=== PATIENT | male | born 1980 | race African-American/Black ===

== ENCOUNTER 2016-07-20 15:43 | Emergency (ER) | payer SELFPAY ==
[~2016-07-20] VITALS: Ht 180.3 cm; Wt 108.9 kg
[~2016-07-20 15:43] MED LIST: ERYT1OIN6 LEFTEYE; HYDR-971 PO
[2016-07-20 16:49] VITALS: BP 169/115
--- NOTE | 2016-07-20 17:13 | PHYS DOC ---
Past Medical History Past Medical History: Hypertension Additional Past Medical Histor: pavon's palsy; uncontrolled HTN Past Surgical History: No Surgical History Additional Information: 2-3 cigarettes daily Alcohol Use: Occasionally Drug Use: None Adult General Chief Complaint Chief Complaint: ANKLE PROBLEM HPI HPI Patient is a 36 year old male who presents with left ankle pain after injury 2 days ago while playing basketball. The patient states that he rolled his ankle while changing directions and running. He has been ambulatory, however with pain and a limp. He denies any numbness or tingling in the toes. He does not have a PCP. Review of Systems Review of Systems Constitutional: Denies fever or chills. [] Musculoskeletal: Denies back pain. Reports left ankle pain and swelling. Integument: Denies rash or skin lesions. Reports left ankle ecchymosis. Neurologic: Denies focal weakness or sensory changes. [] Allergies Allergies Allergies Coded Allergies Type Severity Reaction Last Updated Verified No Known Drug Allergies 09/25/14 No Physical Exam Physical Exam Constitutional: Well developed, well nourished, no acute distress, non-toxic appearance. [] HENT: Normocephalic, atraumatic, oropharynx moist. [] Eyes: PERRLA, EOMI, conjunctiva normal, no discharge. [] Skin: Warm, dry, no erythema, no rash. There is mild ecchymosis of the left medial ankle. Extremities: Left medial malleolus tenderness, ROM mildly decreased due to pain , mild edema. 2+ pedal pulses. Less than 2 second capillary refill in the toes. Light touch sensation intact distally. There is no tenderness of the base of the fifth metatarsal or the proximal fibula. Neurologic: Alert and oriented X 3, normal motor function, normal sensory function, no focal deficits noted. [] Psychologic: Affect normal, judgement normal, mood normal. [] Current Patient Data Vital Signs Vital Signs Date Time Temp Pulse Resp B/P Pulse Ox O2 Delivery O2 Flow Rate FiO2 07/20/16 16:49 97.7 107 16 99 Room Air 97.7 EKG EKG [] Radiology/Procedures Radiology/Procedures Three-view x-ray of the left ankle reviewed and interpreted by myself with Dr. Allen. There are no acute fractures or dislocations. Course & Med Decision Making Course & Med Decision Making Pertinent Labs and Imaging studies reviewed. (See chart for details) The patient was applied with an Justin wrap and crutches prior to discharge. He is instructed on RICE therapy. He is given contact information for orthopedics for follow-up. Return precautions were discussed. He verbalizes understanding and agrees with plan. Dragon Disclaimer Dragon Disclaimer This electronic medical record was generated, in whole or in part, using a voice recognition dictation system. Departure Departure Impression: Primary Impression: Ankle sprain Disposition: HOME, SELF-CARE Condition: STABLE Referrals: MONIKA ALVES II, MD Patient Instructions: Ankle Sprain, [id number] Additional Instructions: There were no broken bones or dislocations seen on your x-ray. Please wear the provided Justin wrap to help with swelling and provide stability in your ankle. You may use the crutches until you feel that you're able to walk on the ankle. Please follow-up with the orthopedic doctor listed below if you have any complications. Return to the emergency department if you have any new or concerning symptoms. Problem Qualifiers Primary Impression: Ankle sprain Encounter type: initial encounter Involved ligament of ankle: unspecified ligament Laterality: left Qualified Code: S93.402A - Sprain of unspecified ligament of left ankle, initial encounter TONY COOK Jul 20, 2016 17:13
--- NOTE | 2016-07-21 09:31 | RAD ---
Left ankle, 3 views, 07/20/2017: History: Twisting injury, pain and swelling No fracture or dislocation is identified. There is mild diffuse soft tissue swelling about the ankle. IMPRESSION: No acute bony abnormality is detected.
== END 2016-07-20 18:06 | disposition home or self-care (01) ==
LOC: ER 15:43
DX: S93.402A Sprain of unspecified ligament of left ankle, initial encounter (principal); I10 Essential (primary) hypertension; F17.210 Nicotine dependence, cigarettes, uncomplicated; X50.0XXA Overexertion from strenuous movement or load, initial encounter; Y93.67 Activity, basketball; Y92.310 Basketball court as the place of occurrence of the external cause; Y99.8 Other external cause status
CPT/HCPCS: 73610; 99284

== ENCOUNTER 2017-08-09 09:34 | Emergency (ER) | payer SELFPAY ==
[2017-08-10 10:21] LABS: NEGATIVE OBC STREP NEG; POSITIVE OBC STREP POS
== END 2017-08-09 12:42 | disposition home or self-care (01) ==
LOC: ER 12:42
DX: H66.93 Otitis media, unspecified, bilateral (principal); J02.9 Acute pharyngitis, unspecified; J06.9 Acute upper respiratory infection, unspecified; I10 Essential (primary) hypertension; F17.200 Nicotine dependence, unspecified, uncomplicated
CPT/HCPCS: 87070; 87880; 99283

== ENCOUNTER 2017-09-18 01:48 | Emergency (ER) | payer SELFPAY ==
[2017-09-18] MEDS: SMZ/TMP 800/160MG TABLET. PO (03:14)
[2017-09-18] MEDS: CEPHALEXIN 250 MG CAPSULE. PO (03:14)
== END 2017-09-18 03:16 | disposition home or self-care (01) ==
LOC: ER 01:48
DX: L03.313 Cellulitis of chest wall (principal); R23.4 Changes in skin texture; I10 Essential (primary) hypertension
CPT/HCPCS: 99283

== ENCOUNTER 2017-10-07 16:18 | Emergency (ER) | payer SELFPAY | END 2017-10-07 18:10 | disposition home or self-care (01) | LOC: ER 18:10 | DX: B49 Unspecified mycosis (principal); M01.X42 Direct infection of left hand in infectious and parasitic diseases classified elsewhere; M01.X41 Direct infection of right hand in infectious and parasitic diseases classified elsewhere; I10 Essential (primary) hypertension | CPT/HCPCS: 99282; 99283 ==

== ENCOUNTER 2019-03-29 06:44 | Emergency (ER) | payer SELFPAY ==
[~2019-03-29] VITALS: Ht 180.3 cm; Wt 108.9 kg
[~2019-03-29 06:44] MED LIST changes: +AMOX875T PO; +CEPH-264 PO; +CLOT15CR4 TP; +HYDR-3164 PO; -HYDR-971 PO; +IBUP-1060 PO; +LISI10TA2 PO; +SULF1TAB24 PO
[2019-03-29] MEDS ORDERED: HYDROcodone/APAP 5/325MG 1 TAB TABLET PO ONE (07:15)
[2019-03-29] MEDS ORDERED: cloNIDine HCL 0.1 MG TABLET PO ONE (07:15)
[2019-03-29 07:51] VITALS: BP 167/97
--- NOTE | 2019-03-29 07:54 | PHYS DOC ---
Past Medical History Past Medical History: Hypertension Additional Past Medical Histor: pavon's palsy; uncontrolled HTN, SHINGLES Past Surgical History: No Surgical History Alcohol Use: Occasionally Drug Use: Marijuana Adult General Chief Complaint Chief Complaint: SORE THROAT HPI HPI Patient is a 38 year old male patient with history of hypertension, bases positive, shingles who presents with complaint of sore throat. Patient complai luan of sore throat for the last 3 days as a constant pain associated with cough and congestion without fever, nausea and vomiting, sick contact. Patient states he doesn't take his blood pressure medication every day because he had only 2 or 3 pills left over. He had blood pressure of 190/100 at arrival to ER. Review of Systems Review of Systems Constitutional: Denies fever or chills [] Eyes: Denies change in visual acuity, redness, or eye pain [] HENT: Reports nasal congestion Respiratory: Reports cough and sore throat Cardiovascular: No additional information not addressed in HPI [] GI: Denies abdominal pain, nausea, vomiting, bloody stools or diarrhea [] : Denies dysuria or hematuria [] Musculoskeletal: Denies back pain or joint pain [] Integument: Denies rash or skin lesions [] Neurologic: Denies headache, focal weakness or sensory changes [] Endocrine: Denies polyuria or polydipsia [] All other systems were reviewed and found to be within normal limits, except as documented in this note. Current Medications Current Medications Current Medications Medications (Trade) Dose Ordered Sig/Alonso Start Time Stop Time Status Last Admin Dose Admin Acetaminophen/ Hydrocodone Bitart (Lortab 5/325) 1 tab 1X ONCE 03/29/19 07:15 03/29/19 07:16 DC 03/29/19 07:18 1 TAB Clonidine HCl (Catapres) 0.1 mg 1X ONCE 03/29/19 07:15 03/29/19 07:16 DC 03/29/19 07:18 0.1 MG Allergies Allergies Allergies Coded Allergies Type Severity Reaction Last Updated Verified No Known Drug Allergies 09/25/14 No Physical Exam Physical Exam Constitutional: Well developed, well nourished, mild distress, non-toxic, obese[] HENT: Normocephalic, atraumatic, bilateral external ears normal, oropharynx moist, pharyngeal erythema, no oral exudates, nose normal. [] Eyes: PERRLA, EOMI, conjunctiva normal, no discharge. [] Neck: Normal range of motion, no tenderness, supple, no stridor. [] Cardiovascular:Heart rate regular rhythm, no murmur [] Lungs & Thorax: Bilateral breath sounds clear to auscultation [] Abdomen: Bowel sounds normal, soft, no tenderness, no masses, no pulsatile masses. [] Skin: Warm, dry, no erythema, no rash. [] Back: No tenderness, no CVA tenderness. [] Extremities: No tenderness, no cyanosis, no clubbing, ROM intact, no edema. [] Neurologic: Alert and oriented X 3, normal motor function, normal sensory function, no focal deficits noted. [] Psychologic: Affect normal, judgement normal, mood normal. [] Current Patient Data Vital Signs Vital Signs Date Time Temp Pulse Resp B/P (MAP) Pulse Ox O2 Delivery O2 Flow Rate FiO2 03/29/19 07:51 98 167/97 (120) 97 03/29/19 07:18 18 Room Air 03/29/19 07:00 98.1 98.1 Lab Values Laboratory Tests Test 03/29/19 07:00 Influenza Type A Antigen Negative (NEGATIVE) Influenza Type B Antigen Negative (NEGATIVE) Group A Streptococcus Rapid Negative (NEGATIVE) EKG EKG [] Radiology/Procedures Radiology/Procedures [] Course & Med Decision Making Course & Med Decision Making Pertinent Labs reviewed. (See chart for details) Evaluation of patient in ER showed 38-year-old male patient with complaining of sore throat and cough. Patient admitted and flu test. Patient had blood pressure of 190s over 100 without his blood pressure medication that improved with clonidine to 167/97. Patient was advised to take his blood pressure medication and prescription for lisinopril was given. Dragon Disclaimer Dragon Disclaimer This electronic medical record was generated, in whole or in part, using a voice recognition dictation system. Departure Departure Impression: Primary Impression: Pharyngitis, acute Additional Impressions: Accelerated hypertension Noncompliance with medication regimen Disposition: HOME, SELF-CARE (at 0 823) Condition: IMPROVED Referrals: NO PCP (PCP) Patient Instructions: Managing Your High Blood Pressure, Viral and Bacterial Pharyngitis Additional Instructions: Drink plenty of liquids Follow-up with your primary care physician in 3-5 days Return to ER if not getting better Thank you for visiting [facility]. We appreciate you trusting us with your care. If any additional problems come up don't hesitate to return to visit us. Please follow up with your primary care provider so they can plan additional care if needed and know about the problem that you had. If symptoms worsen come back to the Emergency Department. Any concerning symptoms that start such as chest pain, shortness of air, weakness or numbness on one side of the body, running high fevers or any other concerning symptoms return to the ER. Scripts Naproxen (NAPROSYN) 500 Mg Tablet 1 TAB PO BID for pain, #20 TAB Prov: SAMI MENDOZA MD 03/29/19 Lisinopril (LISINOPRIL) 10 Mg Tablet 1 TAB PO DAILY, #30 TAB 0 Refills Prov: SAMI MENDOZA MD 03/29/19 Amoxicillin (AMOXICILLIN) 500 Mg Capsule 1 CAP PO Q8HRS for infection, #30 CAP Prov: SAMI MENDOZA MD 03/29/19 Problem Qualifiers Primary Impression: Pharyngitis, acute Pharyngitis/tonsillitis etiology: unspecified etiology Qualified Codes: J02.9 - Acute pharyngitis, unspecified SAMI MENDOZA MD Mar 29, 2019 07:54
[2019-03-29 08:12] LABS: INFLUENZA A PATIENT NEGATIVE (NEGATIVE); INFLUENZA B PATIENT NEGATIVE (NEGATIVE)
[2019-03-29] MEDS ORDERED: LISI10TA2 PO (08:25)
[2019-03-29] MEDS ORDERED: AMOX500C PO (08:25)
[2019-03-29] MEDS ORDERED: NAPR-683 PO (08:25)
== END 2019-03-29 08:32 | disposition home or self-care (01) ==
LOC: ER 06:44
DX: J02.9 Acute pharyngitis, unspecified (principal); I16.0 Hypertensive urgency; F12.90 Cannabis use, unspecified, uncomplicated; Z91.14 Patient's other noncompliance with medication regimen
CPT/HCPCS: 87070; 87804; 87880; 99284

== ENCOUNTER 2019-06-12 22:31 | Emergency (ER) | payer SELFPAY ==
[~2019-06-12 22:31] MED LIST changes: +AMOX500C PO; +NAPR-683 PO
== END 2019-06-13 01:44 | disposition left against medical advice (07) ==
LOC: ER 22:31
DX: R22.42 Localized swelling, mass and lump, left lower limb (principal); Z53.21 Procedure and treatment not carried out due to patient leaving prior to being seen by health care provider

== ENCOUNTER 2020-01-29 18:50 | Emergency (ER) | payer SELFPAY ==
[~2020-01-29] VITALS: Ht 180.3 cm; Wt 109.0 kg
[~2020-01-29 18:50] MED LIST changes: +CLOT15CR23 TP; -CLOT15CR4 TP
[2020-01-29] MEDS ORDERED: HYDROcodone/APAP 5/325MG 1 TAB TABLET PO ONE (22:00)
[2020-01-29] MEDS ORDERED: NAPROXEN 500 MG TABLET PO ONE (22:00)
[2020-01-29] MEDS ORDERED: predniSONE 20 MG TABLET PO ONE (22:00)
--- NOTE | 2020-01-29 22:26 | RAD ---
Exam: Left ankle 3 views INDICATION: Left ankle pain TECHNIQUE: Frontal, lateral and oblique views left ankle Comparisons: None FINDINGS: Soft tissue swelling surrounding the ankle. Bone mineralization is normal. No acute or healed fractures. Joint spaces are well-maintained. IMPRESSION: Soft tissue swelling surrounding the ankle without underlying osseous abnormality identified. Electronically signed by: Eugenio Mays MD (01/29/2020 10:23 PM) MONIQUE
[2020-01-29] MEDS ORDERED: GABA300C18 PO (22:46)
[2020-01-29] MEDS ORDERED: NAPR-514 PO (22:46)
--- NOTE | 2020-01-29 22:46 | PHYS DOC ---
Past Medical History Past Medical History: Hypertension Additional Past Medical Histor: pavon's palsy; uncontrolled HTN, SHINGLES Past Surgical History: No Surgical History Smoking Status: Current Every Day Smoker Alcohol Use: Occasionally Drug Use: Marijuana General Adult EDM: Chief Complaint: ANKLE PROBLEM HPI: HPI: Patient is a 39 year old male patient with history of hypertension who presents to the ED today complaining of 8 out of 10 left generalized ankle pain with swelling described as burning that has been going on for 5 days. Patient denies any injury. Patient states the pain is worse on weightbearing. Denies anything specifically relieving the pain. Review of Systems: Review of Systems: Constitutional: Denies fever or chills. [] Musculoskeletal: Reports left ankle pain Integument: Denies rash. [] Neurologic: Denies headache, focal weakness or sensory changes. [] Psychiatric: Denies depression or anxiety. [] Heart Score: Risk Factors: Risk Factors: DM, Current or recent (<one month) smoker, HTN, HLP, family history of CAD, obesity. Risk Scores: Score 0 - 3: 2.5% MACE over next 6 weeks - Discharge Home Score 4 - 6: 20.3% MACE over next 6 weeks - Admit for Clinical Observation Score 7 - 10: 72.7% MACE over next 6 weeks - Early Invasive Strategies Current Medications: Current Medications Medications (Trade) Dose Ordered Sig/Alonso Start Time Stop Time Status Last Admin Dose Admin Acetaminophen/ Hydrocodone Bitart (Lortab 5/325) 2 tab 1X ONCE 01/29/20 22:00 01/29/20 22:01 DC 01/29/20 22:07 2 TAB Naproxen (Naprosyn) 500 mg 1X ONCE 01/29/20 22:00 01/29/20 22:01 DC 01/29/20 22:07 500 MG Prednisone (Prednisone) 60 mg 1X ONCE 01/29/20 22:00 01/29/20 22:01 DC 01/29/20 22:06 60 MG Allergies: Allergies: Allergies Coded Allergies Type Severity Reaction Last Updated Verified No Known Drug Allergies 09/25/14 No Physical Exam: PE: Constitutional: Well developed, well nourished, no acute distress, non-toxic appearance. [] Skin: Warm, dry, no erythema, no rash. [] Back: No tenderness, no CVA tenderness. [] Extremities: Left ankle and foot with no obvious deformity. Diffuse tenderness on palpation of the left ankle. Mild soft tissue swelling noted diffusely on the ankle. Full range of motion to the left ankle and foot. +2 left pedal pulse. Cap refill less than 2 seconds in the toes. Neurologic: Alert and oriented X 3, normal motor function, normal sensory function, no focal deficits noted. [] Psychologic: Affect normal, judgement normal, mood normal. [] Current Patient Data: Vital Signs: Vital Signs Date Time Temp Pulse Resp B/P (MAP) Pulse Ox O2 Delivery O2 Flow Rate FiO2 01/29/20 21:18 102 18 177/136 (150) 97 Room Air 01/29/20 20:04 97.9 97.9 EKG: EKG: [] Radiology/Procedures: Radiology/Procedures: []PROCEDURE: ANKLE LEFT 3V Exam: Left ankle 3 views INDICATION: Left ankle pain TECHNIQUE: Frontal, lateral and oblique views left ankle Comparisons: None FINDINGS: Soft tissue swelling surrounding the ankle. Bone mineralization is normal. No acute or healed fractures. Joint spaces are well-maintained. IMPRESSION: Soft tissue swelling surrounding the ankle without underlying osseous abnormality identified. Electronically signed by: Eugenio Mckenzie MD (01/29/2020 10:23 PM) [facility] DICTATED and SIGNED BY: EUGENIO MCKENZIE MD DATE: 01/29/202222 Course & Med Decision Making: Course & Med Decision Making Pertinent Labs and Imaging studies reviewed. (See chart for details) This is a 39-year-old male patient presented to the ED today with left ankle pain with swelling that began 5 days ago. Left ankle x-rays interpreted by radiologist were noted for soft tissue swelling otherwise no acute findings. Justin bandage and Aircast applied to the left ankle. Ice elevation encouraged. Follow-up with orthopedic doctor in 1 week Marilyn Disclaimer: Marilyn Disclaimer: This electronic medical record was generated, in whole or in part, using a voice recognition dictation system. Departure Departure Impression: Primary Impression: Left ankle swelling Additional Impression: Left ankle pain Qualified Codes: M25.572 - Pain in left ankle and joints of left foot Disposition: 01 DC HOME SELF CARE/HOMELESS Condition: STABLE Referrals: NO PCP (PCP) RON ALVES MD follow up in 1 week Patient Instructions: Ankle Pain Additional Instructions: You were seen for ankle pain. Your ankle x-rays were noted for swelling otherwise no acute findings. Wear the Aircast provided as well as Justin bandage as tolerated. Follow-up with the orthopedic doctor provided in 1 to 2 weeks. Try to ice and elevate the extremity. Scripts Naproxen (NAPROXEN) 500 Mg Tablet 1 TAB PO BID for pain for 30 Days, #60 TAB 0 Refills Prov: OLEG PHAM APRN 01/29/20 Gabapentin (GABAPENTIN ) 300 Mg Capsule 300 MG PO TID PRN for PAIN, #21 CAP Prov: OLEG PHAM APRN 01/29/20 OLEG PHAM APRN Jan 29, 2020 22:46
[2020-01-29 23:00] VITALS: BP 160/90
== END 2020-01-29 23:09 | disposition home or self-care (01) ==
LOC: ER 18:50
DX: M25.572 Pain in left ankle and joints of left foot (principal); I10 Essential (primary) hypertension; F17.200 Nicotine dependence, unspecified, uncomplicated
CPT/HCPCS: 29515; 73610; 99284; J7512

== ENCOUNTER 2020-10-10 13:01 | Emergency (ER) | payer OTHER ==
[~2020-10-10] VITALS: Ht 180.3 cm; Wt 100.0 kg
[~2020-10-10 13:01] MED LIST changes: +AMLO-186 PO; +ASPI-630 PO; +ATOR40TA59 PO; +CARV6.2511 PO; +GABA300C18 PO; +LISI10TA16 PO; -LISI10TA2 PO; +LISI1TAB37 PO; +NAPR-514 PO; +PRED-220 PO
[2020-10-10 13:14] VITALS: BP 166/104
[2020-10-10] MEDS ORDERED: ASPIRIN CHEWABLE 81 MG TABLET. PO ONE (13:30)
--- NOTE | 2020-10-10 13:33 | PHYS DOC ---
Past Medical History Past Medical History: Hypertension Additional Past Medical Histor: pavon's palsy; uncontrolled HTN, SHINGLES, SLEEP APNEA Past Surgical History: No Surgical History Smoking Status: Current Every Day Smoker Alcohol Use: Heavy Drug Use: Marijuana General Adult EDM: Chief Complaint: CHEST PAIN HPI: HPI: Patient is a 40-year-old male presenting for chest pain. Reports onset was 1 hour prior to arrival while sitting still watching TV. Nothing known makes better or worse. Pain described as focal deep to left breast without radiation, states it feels tight and 6/10 severity on initial presentation, reports it has improved to 3/10 severity without any intervention. Timing of symptoms has been constant but as mentioned, has improved since initial onset. Denies any other's concerning signs or symptoms such as lightheadedness, fever, diaphoresis, ripping or tearing sensation in torso, cough, abdominal pain, changes in motor or sensory or neuro function. No prior history of passing out with physical activity/exertion, no family history of early cardiac disease. 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 Of note, patient was recently admitted to our hospital and subsequently discharged for pneumonia. He saw our cardiologists and is currently scheduled for stress test in outpatient setting next month, denies any prior provocative cardiac testing in the past Review of Systems: Review of Systems: Fourteen body systems of review of systems have been reviewed. See HPI for pertinent positives and negative responses, other orellana all other systems are negative, non-pertinent or non-contributory Heart Score: C/O Chest Pain: Yes HEART Score for Chest Pain: HEART Score for Chest Pain Response (Comments) Value History Moderately Suspicious 1 ECG Normal 0 Age < 45 0 Risk Factors 1 or 2 Risk Factors 1 Troponin >1-<3x Normal Limit 1 Total 3 Risk Factors: Risk Factors: DM, Current or recent (<one month) smoker, HTN, HLP, family history of CAD, obesity. Risk Scores: Score 0 - 3: 2.5% MACE over next 6 weeks - Discharge Home Score 4 - 6: 20.3% MACE over next 6 weeks - Admit for Clinical Observation Score 7 - 10: 72.7% MACE over next 6 weeks - Early Invasive Strategies Current Medications: Current Medications Medications (Trade) Dose Ordered Sig/Alonso Start Time Stop Time Status Last Admin Dose Admin Aspirin (Aspirin Chewable) 324 mg 1X ONCE 10/10/20 13:30 10/10/20 13:39 DC 10/10/20 13:30 324 MG Allergies: Allergies: Allergies Coded Allergies Type Severity Reaction Last Updated Verified No Known Drug Allergies 09/25/14 No Physical Exam: PE: Constitutional: Well developed, well nourished, no acute distress, non-toxic appearance. HENT: Normocephalic, atraumatic, bilateral external ears normal, oropharynx moist, no oral exudates, nose normal. Eyes: PERRLA, EOMI, conjunctiva normal, no discharge. Neck: Normal range of motion, no tenderness, supple, no stridor. Cardiovascular: Heart rate regular, sinus rhythm, no murmurs rubs or gallops Lungs & Thorax: Bilateral breath sounds clear to auscultation Abdomen: Bowel sounds normal, soft, no tenderness, no masses, no pulsatile masses. Nonsurgical abdomen, no peritoneal signs Skin: Warm, dry, no erythema, no rash. Back: No tenderness, no CVA tenderness. Extremities: No tenderness, no cyanosis, no clubbing, ROM intact, no edema. Neurologic: Alert and oriented X 3, grossly normal motor & sensory function, no focal deficits noted. Psychologic: Affect normal, judgement normal, mood normal. Current Patient Data: Labs: Laboratory Tests Test 10/10/20 13:50 White Blood Count 3.8 x10^3/uL Red Blood Count 4.39 x10^6/uL Hemoglobin 13.7 g/dL Hematocrit 39.7 % Mean Corpuscular Volume 91 fL Mean Corpuscular Hemoglobin 31 pg Mean Corpuscular Hemoglobin Concent 35 g/dL Red Cell Distribution Width 15.4 % Platelet Count 197 x10^3/uL Neutrophils (%) (Auto) 57 % Lymphocytes (%) (Auto) 28 % Monocytes (%) (Auto) 12 % Eosinophils (%) (Auto) 2 % Basophils (%) (Auto) 1 % Neutrophils # (Auto) 2.1 x10^3/uL Lymphocytes # (Auto) 1.0 x10^3/uL Monocytes # (Auto) 0.5 x10^3/uL Eosinophils # (Auto) 0.1 x10^3/uL Basophils # (Auto) 0.0 x10^3/uL Sodium Level 144 mmol/L Potassium Level 4.8 mmol/L Chloride Level 108 mmol/L Carbon Dioxide Level 26 mmol/L Anion Gap 10 Blood Urea Nitrogen 24 mg/dL Creatinine 1.3 mg/dL Estimated GFR (Cockcroft-Gault) 74.8 Glucose Level 88 mg/dL Calcium Level 8.6 mg/dL Troponin I Quantitative < 0.017 ng/mL Current Medications Medications (Trade) Dose Ordered Sig/Alonso Route PRN Reason Start Time Stop Time Status Last Admin Dose Admin Aspirin (Aspirin Chewable) 324 mg 1X ONCE PO 10/10/20 13:30 10/10/20 13:39 DC 10/10/20 13:30 324 MG Vital Signs: Vital Signs Date Time Temp Pulse Resp B/P (MAP) Pulse Ox O2 Delivery O2 Flow Rate FiO2 10/10/20 13:14 98.1 94 166/104 (101) 99 Room Air 98.1 EKG: EKG: EKG ordered and interpreted by myself at 1320 hrs. as sinus rhythm at 89 bpm, unremarkable intervals, left axis deviation, no acute ischemic findings, no S ELIZABETH Repeat EKG ordered and interpreted by myself at 1402 hrs. as sinus rhythm at 82 bpm, unremarkable intervals, left axis deviation, no acute ischemic findings, no change from prior EKG Radiology/Procedures: Radiology/Procedures: XR CHEST 1V History: Reason: CHEST PAIN / Spl. Instructions: / History: Comparison: June 27, 2020 Findings: No consolidation or pleural effusion. Normal heart size. No pneumothorax. Impression: 1. No acute cardiopulmonary process. Electronically signed by: Shiraz Hilario DO (10/10/2020 2:12 PM) [id number] Course & Med Decision Making: Course & Med Decision Making ABCs unremarkable. I disclosed entirety of ER findings and discussed most likely diagnosis of chest pain unspecified. Other diagnoses were discussed with patient such as pneumothorax, pneumonia, and pulmonary embolism but deemed less likely causes of patient's presentation. Plan of care discussed at length with need for close outpatient follow-up to review today's ER visit stressed. Strict return precautions were also discussed at length with good understanding by patient. Patient voiced understanding and agreement with the plan. Patient knows to come back for repeat evaluation if concerning signs or symptoms present prior to outpatient follow-up. Hemodynamically stable, ambulatory and well-appearing at time of disposition. Dragon Disclaimer: Dragon Disclaimer: This electronic medical record was generated, in whole or in part, using a voice recognition dictation system. PERC Rule for PE PERC Rule for PE Response (Comments) Value Age > 50: No 0 HR > 100: No 0 Sa02 on room air <95%: No 0 Unilateral leg swelling: No 0 Hemoptysis: No 0 Recent surgery or trauma: No 0 Prior PE or DVT: No 0 Hormone use: No 0 Total 0 Departure Departure Impression: Primary Impression: Chest pain Additional Impressions: Hypertension Leukopenia Disposition: HOME / SELF CARE / HOMELESS Condition: STABLE Referrals: KEVIN LEVI PA-C (PCP) Patient Instructions: Chest Pain (Nonspecific) Additional Instructions: You were seen for chest pain. Your workup did not show any acute abnormalities today, but does not indicate that you do not have underlying cardiovascular disease. You do need to follow up with your primary doctor and sas sql developer for further evaluation and treatment. In addition, it is recommended that you check your blood pressure more often and keep a dedicated blood pressure log for both your primary care and sas sql developer to review. You should also discuss with your primary care the cause of your low white blood cell count otherwise known as leukopenia. As discussed, many illnesses and underlying comorbid conditions can cause this and so, more outpatient work-up is advised. You should return to the ED if you develop worsening chest pain, shortness of breath, fever, abnormal sweating, leg swelling, or any other new or concerning symptoms. MAINOR NEWBY DO Oct 10, 2020 13:33
[2020-10-10 13:58] LABS: BASO % 1 % (0-3); EOS # 0.1 x10^3/uL (0.0-0.7); EOS % 2 % (0-3); HEMATOCRIT 39.7 % (39.0-53.0); HEMOGLOBIN 13.7 g/dL (13.0-17.5); LYMPH % 28 % (24-48); MEAN CORPUSCULAR HEMOGLOBIN 31 pg (25-35); MEAN CORPUSCULAR HGB CONC 35 g/dL (31-37); MEAN CORPUSCULAR VOLUME 91 fL (79-100); MONO # 0.5 x10^3/uL (0.0-1.1); MONO % 12 % (0-9); NEUT # 2.1 x10^3/uL (1.8-7.7); NEUT % 57 % (31-73); PLATELET COUNT 197 x10^3/uL (140-400); RED BLOOD COUNT 4.39 x10^6/uL (4.30-5.70); RED CELL DISTRIBUTION WIDTH 15.4 % (11.5-14.5); WHITE BLOOD COUNT 3.8 x10^3/uL (4.0-11.0)
[2020-10-10 14:09] LABS: CALCIUM 8.6 mg/dL (8.5-10.1); CREATININE 1.3 mg/dL (0.7-1.3); GFR 74.8; POTASSIUM 4.8 mmol/L (3.5-5.1)
--- NOTE | 2020-10-10 14:15 | RAD ---
XR CHEST 1V History: Reason: CHEST PAIN / Spl. Instructions: / History: Comparison: June 27, 2020 Findings: No consolidation or pleural effusion. Normal heart size. No pneumothorax. Impression: 1. No acute cardiopulmonary process. Electronically signed by: Shiraz Hilario DO (10/10/2020 2:12 PM) [id number]
== END 2020-10-10 15:03 | disposition home or self-care (01) ==
LOC: ER 13:01
DX: R07.89 Other chest pain (principal); I10 Essential (primary) hypertension; F17.200 Nicotine dependence, unspecified, uncomplicated; F10.20 Alcohol dependence, uncomplicated; Y90.9 Presence of alcohol in blood, level not specified
CPT/HCPCS: 36415; 71045; 80048; 84484; 85025; 93005; 99285-25

== ENCOUNTER 2021-01-06 07:41 | Emergency (ER) | payer OTHER ==
[~2021-01-06] VITALS: Ht 180.3 cm; Wt 105.4 kg
[~2021-01-06 07:41] MED LIST changes: +ERYT1OIN3 LEFTEYE; -ERYT1OIN6 LEFTEYE
[2021-01-06 07:59] VITALS: BP 127/77
--- NOTE | 2021-01-06 07:59 | PHYS DOC ---
Past Medical History Past Medical History: High Cholesterol, Hypertension Additional Past Medical Histor: pavon's palsy; uncontrolled HTN, SHINGLES, SLEEP APNEA Past Surgical History: No Surgical History Smoking Status: Current Every Day Smoker Alcohol Use: Heavy Drug Use: Marijuana General Adult EDM: Chief Complaint: ANKLE PROBLEM HPI: HPI: Patient is a 40 year old male who presents with right ankle pain after falling approximately 3 feet onto his right ankle last night. Was stepping behind his car and did not notice a drop off. Landed on concrete on his right foot. Thinks he may have rolled his ankle. Has had pain of the foot and ankle since. Has not been able to bear weight. Injury happened approximately 12:30 AM this morning. NKDA No history of surgery on this foot/ankle Denies head strike, LOC. No blood thinners. Denies pain elsewhere. Review of Systems: Review of Systems: Constitutional: Denies fever or chills. [] Eyes: Denies change in visual acuity. [] HENT: Denies nasal congestion or sore throat. [] Respiratory: Denies cough or shortness of breath. [] Cardiovascular: Denies chest pain or edema. [] GI: Denies abdominal pain, nausea, vomiting, bloody stools or diarrhea. [] : Denies dysuria. [] Musculoskeletal: R foot/ankle pain Integument: Denies rash. [] Neurologic: Denies headache, focal weakness or sensory changes. [] Endocrine: Denies polyuria or polydipsia. [] Lymphatic: Denies swollen glands. [] Psychiatric: Denies depression or anxiety. [] Heart Score: C/O Chest Pain: No Risk Factors: Risk Factors: DM, Current or recent (<one month) smoker, HTN, HLP, family history of CAD, obesity. Risk Scores: Score 0 - 3: 2.5% MACE over next 6 weeks - Discharge Home Score 4 - 6: 20.3% MACE over next 6 weeks - Admit for Clinical Observation Score 7 - 10: 72.7% MACE over next 6 weeks - Early Invasive Strategies Allergies: Allergies: Allergies Coded Allergies Type Severity Reaction Last Updated Verified No Known Drug Allergies 09/25/14 No Physical Exam: PE: Constitutional: Well developed, well nourished, no acute distress, non-toxic appearance. [] Eyes: PERRLA, EOMI, conjunctiva normal, no discharge. [] Neck: Normal range of motion, no tenderness, supple, no stridor. [] Cardiovascular:Heart rate regular rhythm, no murmur [] Lungs & Thorax: Bilateral breath sounds clear to auscultation [] Abdomen: Bowel sounds normal, soft, no tenderness, no masses, no pulsatile masses. [] Skin: Warm, dry, no erythema, no rash. [] Back: No tenderness, no CVA tenderness. [] Extremities: DP pulse 2+, no proximal tibial/fibular tenderness, there is distal/posterior tenderness of both malleoli on the right. Midfoot, proximal fifth metatarsal, and calcaneus are tender to the touch. Neurologic: Alert and oriented X 3, normal motor function, normal sensory function, no focal deficits noted. [] Psychologic: Affect normal, judgement normal, mood normal. [] EKG: EKG: [] Radiology/Procedures: Radiology/Procedures: [] Impression: [facility] [address] [place] [address] IMAGING REPORT Signed PATIENT: MICHAEL JACKSON ACCOUNT: [id number] : 1980 LOCATION: ER AGE: 40 SEX: M EXAM STATUS: PRE ER ORD. PHYSICIAN: JENA RODRIGUEZ MD REASON: fall, malleolar pain, midfoot pain, calcaneous pain PROCEDURE: FOOT RIGHT 3V EXAM: 3 views of the right ankle 3 views of the right foot DATE: 01/06/2021 7:58 AM INDICATION: Reason: fall, malleolar pain, midfoot pain, calcaneous pain / Spl. Instructions: / History: COMPARISON: No Prior FINDINGS: No acute fracture or dislocation. Ankle mortise is congruent. Talar dome is intact. Joint spaces are preserved without significant degenerative/proliferative change. Soft tissue swelling about the anterior and lateral aspect of the right ankle. IMPRESSION: 1. No acute fracture or dislocation. 2. Soft tissue swelling about the anterior and lateral aspect of the right ankle. Electronically signed by: Jose J Joe MD (01/06/2021 8:30 AM) [id number] DICTATED and SIGNED BY: JOSE J JOE MD DATE: 01/06/21 [id number] 0 Course & Med Decision Making: Course & Med Decision Making Pertinent Labs and Imaging studies reviewed. (See chart for details) Patient a 40-year-old male who presents with right foot/ankle pain after falling approximately 3 feet onto concrete. No evidence of other injury by history or exam. Plain films of the foot and ankle ordered. 0759 Plain films negative. Discussed with patient two options, CT of foot to evaluate for occult fracture vs close outptatient follow up with crutches, post-op shoe, and non- weightbearing. He opted for close outpatient f/u. [id number] Dragon Disclaimer: Dragon Disclaimer: This electronic medical record was generated, in whole or in part, using a voice recognition dictation system. Departure Departure Impression: Primary Impression: Right foot pain Disposition: HOME / SELF CARE / HOMELESS Condition: STABLE Referrals: KEVIN LEVI PA-C (PCP) Schedule an appointment this week Additional Instructions: Your x-ray did not show a fracture in your foot or ankle. There is a chance that you sprained something in your foot, but there is also a chance that we could have missed a small fracture. We will be important that you follow-up with your primary care doctor later this week to track your progress. Please wear the postop shoe and use crutches and do not bear weight on your foot until you follow-up with your primary care doctor. If your pain completely dissipates you may start to bear weight on your foot. For pain tylenol and ibuprofen are best used on a schedule. Please alternate between the two. -Tylenol 1000 mg every 6 hours (do not exceed 4000 mg in one day) -Ibuprofen 400 mg every 6 hours. Take with food. Do not take for more than 1 week. JENA RODRIGUEZ MD Jan 06, 2021 07:59
--- NOTE | 2021-01-06 08:32 | RAD ---
EXAM: 3 views of the right ankle 3 views of the right foot DATE: 01/06/2021 7:58 AM INDICATION: Reason: fall, malleolar pain, midfoot pain, calcaneous pain / Spl. Instructions: / Histo ry: COMPARISON: No Prior FINDINGS: No acute fracture or dislocation. Ankle mortise is congruent. Talar dome is intact. Joint spaces are preserved without significant degenerative/proliferative change. Soft tissue swelling about the anter ior and lateral aspect of the right ankle. IMPRESSION: 1. No acute fracture or dislocation. 2. Soft tissue swelling about the anterior and lateral aspect of the right ankle. Electronically signed by: Jose J Guerrero MD (01/06/2021 8:30 AM) [id number]
== END 2021-01-06 08:53 | disposition home or self-care (01) ==
LOC: ER 07:41
DX: M25.571 Pain in right ankle and joints of right foot (principal); G89.11 Acute pain due to trauma; E78.00 Pure hypercholesterolemia, unspecified; I10 Essential (primary) hypertension; F17.200 Nicotine dependence, unspecified, uncomplicated; W18.39XA Other fall on same level, initial encounter; Y93.89 Activity, other specified; Y92.89 Other specified places as the place of occurrence of the external cause; Y99.8 Other external cause status
CPT/HCPCS: 73610; 73630; 99284

== ENCOUNTER 2021-07-01 09:13 | Emergency (ER) | payer SELFPAY ==
[~2021-07-01] VITALS: Ht 180.3 cm; Wt 104.5 kg
[2021-07-01 09:31] VITALS: BP 146/92
--- NOTE | 2021-07-01 10:00 | PHYS DOC ---
Past Medical History Past Medical History: CAD, High Cholesterol, Hypertension Additional Past Medical Histor: pavon's palsy; uncontrolled HTN, SHINGLES, SLEEP APNEA Past Surgical History: No Surgical History Smoking Status: Current Every Day Smoker Alcohol Use: Heavy Drug Use: Marijuana General Adult EDM: Chief Complaint: LOWER EXTREMITY SWELLING HPI: HPI: Patient is a 41-year-old male that presents today with left foot pain. Patient states he has been having left foot pain for approximately 2 and half weeks, he says over the last couple days is increased swelling and has become too painful to walk on. Patient denies trauma, he states that he had something similar to this in his right ankle a couple of years ago and was diagnosed with gout. He states that he has a primary care physician Dr. Melendez and he has not followed up with them yet. Patient denies fever chills. Review of Systems: Review of Systems: Constitutional: Denies fever or chills. [] Eyes: Denies change in visual acuity. [] HENT: Denies nasal congestion or sore throat. [] Respiratory: Denies cough or shortness of breath. [] Cardiovascular: Denies chest pain or edema. [] GI: Denies abdominal pain, nausea, vomiting, bloody stools or diarrhea. [] : Denies dysuria. [] Musculoskeletal: Left foot pain Integument: Denies rash. [] Neurologic: Denies headache, focal weakness or sensory changes. [] Endocrine: Denies polyuria or polydipsia. [] Lymphatic: Denies swollen glands. [] Psychiatric: Denies depression or anxiety. [] Heart Score: C/O Chest Pain: No Risk Factors: Risk Factors: DM, Current or recent (<one month) smoker, HTN, HLP, family history of CAD, obesity. Risk Scores: Score 0 - 3: 2.5% MACE over next 6 weeks - Discharge Home Score 4 - 6: 20.3% MACE over next 6 weeks - Admit for Clinical Observation Score 7 - 10: 72.7% MACE over next 6 weeks - Early Invasive Strategies Allergies: Allergies: Allergies Coded Allergies Type Severity Reaction Last Updated Verified No Known Drug Allergies 09/25/14 No Physical Exam: PE: Constitutional: Well developed, well nourished, no acute distress, non-toxic appearance. [] HENT: Normocephalic, atraumatic, bilateral external ears normal, oropharynx moist, no oral exudates, nose normal. [] Eyes: PERRLA, EOMI, conjunctiva normal, no discharge. [] Neck: Normal range of motion, no tenderness, supple, no stridor. [] Cardiovascular:Heart rate regular rhythm, no murmur [] Lungs & Thorax: Bilateral breath sounds clear to auscultation [] Abdomen: Bowel sounds normal, soft, no tenderness, no masses, no pulsatile masses. [] Skin: Warm, dry, no erythema, no rash. [] Back: No tenderness, no CVA tenderness. [] Extremities: Left foot is swollen, tenderness located over the first MP joint, swelling in all the toes was noted range of motion is limited due to pain, no redness or warmth is noted dorsalis pedis pulse is 2+, sensory and vascular is intact distal to the injury cap refill is less than 2 seconds Neurologic: Alert and oriented X 3, normal motor function, normal sensory function, no focal deficits noted. [] Psychologic: Affect normal, judgement normal, mood normal. [] Current Patient Data: Labs: Laboratory Tests Test 07/01/21 10:24 White Blood Count 6.8 x10^3/uL Red Blood Count 4.03 x10^6/uL Hemoglobin 11.9 g/dL Hematocrit 35.7 % Mean Corpuscular Volume 89 fL Mean Corpuscular Hemoglobin 30 pg Mean Corpuscular Hemoglobin Concent 33 g/dL Red Cell Distribution Width 13.2 % Platelet Count 336 x10^3/uL Neutrophils (%) (Auto) 66 % Lymphocytes (%) (Auto) 21 % Monocytes (%) (Auto) 11 % Eosinophils (%) (Auto) 2 % Basophils (%) (Auto) 1 % Neutrophils # (Auto) 4.5 x10^3/uL Lymphocytes # (Auto) 1.4 x10^3/uL Monocytes # (Auto) 0.8 x10^3/uL Eosinophils # (Auto) 0.1 x10^3/uL Basophils # (Auto) 0.0 x10^3/uL Sodium Level 142 mmol/L Potassium Level 3.6 mmol/L Chloride Level 103 mmol/L Carbon Dioxide Level 25 mmol/L Anion Gap 14 Blood Urea Nitrogen 17 mg/dL Creatinine 1.4 mg/dL Estimated GFR (Cockcroft-Gault) 68.3 Glucose Level 90 mg/dL Uric Acid 8.1 mg/dL Calcium Level 9.6 mg/dL Vital Signs: Vital Signs Date Time Temp Pulse Resp B/P (MAP) Pulse Ox O2 Delivery O2 Flow Rate FiO2 07/01/21 09:31 98.9 106 18 146/92 (110) 97 Room Air 98.9 EKG: EKG: [] Radiology/Procedures: Radiology/Procedures: [REASON: swelling and pain X 2 weeks, no injury PROCEDURE: FOOT LEFT 3V Exam: XR FOOT_LEFT 3 VIEWS History: Pain and swelling. No injury. Comparison: None. Findings: Osseous mineralization is normal. No acute fracture or dislocaton. There is a calcific density at the lateral aspect of the fifth toe proximal phalangeal head which may represent developmental variant versus sequela of old injury. Nonweightbearing suggestion of pes planus. Mild degenerative osteophytes at the first metatarsal-phalangeal joint. Small plantar calcaneal spur. Impression: 1. No acute osseous abnormality of the left foot. 2. Suspected posttraumatic or developmental variant appearance of the small toe proximal phalangeal head with calcification in the region of the collateral ligament insertion. 3. Nonweightbearing suggestion of pes planus. Electronically signed by: Cricket Montoya MD (07/01/2021 10:49 AM) [id number]] Course & Med Decision Making: Course & Med Decision Making Pertinent Labs and Imaging studies reviewed. (See chart for details) 2114 reviewed radiological laboratory results with patient did inform him that his right great toe has gout and that that is what is causing his pain, will place the patient in a postop shoe with a set of crutches, he will be giving opioid medication for pain relief due to the increase in his renal function of a creatinine of 1.4. Patient will be given a list of foods and drinks to avoid to help prevent gout in the future. Patient is to follow-up with his primary care physician early next week for further management of this use crutches and as needed to weight-bear and wear the postop shoe for comfort. Patient verbalizes understanding this and agreeable to the plan of care. Brittanion Disclaimer: Marilyn Disclaimer: This electronic medical record was generated, in whole or in part, using a voice recognition dictation system. Departure Departure Impression: Primary Impression: Gout Qualified Codes: M10.9 - Gout, unspecified Disposition: 01 HOME / SELF CARE / HOMELESS Condition: STABLE Referrals: NO PCP (PCP) JAGDISH MARKS DPSusan Patient Instructions: Crutch Use, Gout Additional Instructions: Percocet take 1 to 2 tablets every 6 hours as needed for severe pain Wear postop shoe and weight-bear as tolerated to the left foot Use the list that was provided today to avoid foods that make the gout worse and to prevent gout in the future Follow-up with your primary care physician or one of the clinics below for further management of your gout [facility] [address] [place] [address] [facility] [address] [place] [address] [facility] the [facility] [address] [facility] [place] [address] [facility] [address] [place] [address] [facility] [address] [place] [address] [address] [address] [place] [address] [facility] [address] [place] [address] [facility] [address] [place] [address] [facility] [address] [place] [address] [facility] [address] [place] [address] Scripts Oxycodone/Apap 5-325 (PERCOCET 5-325 MG TABLET ) 1 Each Tablet 1 TAB PO QIDPRN PRN for gout for 7 Days, #28 TAB 0 Refills Prov: LANDRY PATTEN MORNING BABYSITTER 07/01/21 LANDRY PATTEN MORNING BABYSITTER Jul 01, 2021 10:00
[2021-07-01 10:38] LABS: BASO % 1 % (0-3); EOS # 0.1 x10^3/uL (0.0-0.7); EOS % 2 % (0-3); HEMATOCRIT 35.7 % (39.0-53.0); HEMOGLOBIN 11.9 g/dL (13.0-17.5); LYMPH # 1.4 x10^3/uL (1.0-4.8); LYMPH % 21 % (24-48); MEAN CORPUSCULAR HEMOGLOBIN 30 pg (25-35); MEAN CORPUSCULAR HGB CONC 33 g/dL (31-37); MEAN CORPUSCULAR VOLUME 89 fL (79-100); MONO # 0.8 x10^3/uL (0.0-1.1); MONO % 11 % (0-9); NEUT # 4.5 x10^3/uL (1.8-7.7); NEUT % 66 % (31-73); PLATELET COUNT 336 x10^3/uL (140-400); RED BLOOD COUNT 4.03 x10^6/uL (4.30-5.70); RED CELL DISTRIBUTION WIDTH 13.2 % (11.5-14.5); WHITE BLOOD COUNT 6.8 x10^3/uL (4.0-11.0)
--- NOTE | 2021-07-01 10:51 | RAD ---
Exam: XR FOOT_LEFT 3 VIEWS History: Pain and swelling. No injury. Comparison: None. Findings: Osseous mineralization is normal. No acute fracture or dislocaton. There is a calcific density at the lateral aspect of the fifth toe proximal phalangeal head which may represent developmental variant v ersus sequela of old injury. Nonweightbearing suggestion of pes planus. Mild degenerative osteophytes at the first metatarsal-phalangeal joint. Small plantar calcaneal spur. Impression: 1. No acute osseous abnormality of the left foot. 2. Suspected posttraumatic or developmental variant appearance of the small toe proximal phalangeal head with calcification in the region of the collateral ligament insertion. 3. Nonweightbearing suggestion of pes planus. Electronically signed by: Cricket Montoya MD (07/01/2021 10:49 AM) [id number]
[2021-07-01 11:06] LABS: CALCIUM 9.6 mg/dL (8.5-10.1); CREATININE 1.4 mg/dL (0.7-1.3); GFR 68.3; POTASSIUM 3.6 mmol/L (3.5-5.1); URIC ACID 8.1 mg/dL (3.5-7.2)
[2021-07-01] MEDS ORDERED: OXYC1TAB15 PO (11:31)
[2021-07-01] MEDS: oxyCODONE/APAP 5/325 1 TAB TABLET PO ONE (11:49)
== END 2021-07-01 11:51 | disposition home or self-care (01) ==
LOC: ER 09:13
DX: M10.9 Gout, unspecified (principal); I10 Essential (primary) hypertension; E78.00 Pure hypercholesterolemia, unspecified; I25.10 Atherosclerotic heart disease of native coronary artery without angina pectoris; F17.200 Nicotine dependence, unspecified, uncomplicated; F10.20 Alcohol dependence, uncomplicated; Y90.9 Presence of alcohol in blood, level not specified
CPT/HCPCS: 36415; 73630; 80048; 84550; 85025; 99284